=== PATIENT | male | born 1975 | race Caucasian/White ===

== ENCOUNTER 2024-03-31 07:59 | Outpatient (AMB) | payer OTHER, SELFPAY ==
[2024-03-31 08:02] VITALS: BP 116/65; PULSE 72; BMI 33.9
--- NOTE | 2024-03-31 08:02 | MHC.OFFVIS ---
Vital Signs 03/31/24 08:02 Height 5 ft 10 in Weight 236 lb 5.369 oz BMI 33.9 BP 116/65 Blood Pressure Location Lt brachial Position Sitting Pulse 72 Intake Visit Reasons: Colonoscopy Screening Intake Note: Patient referred for colonoscopy screening. Will be first colonoscopy. Patient c/o: denies diarrhea, constipation. Reports on Mounjaro for 1.5yr. 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 Accompanied by: Self / Same As Patient Allergies No Known Allergies Allergy (Verified 03/31/24 08:08) Medication List - Last Reconciled 03/31/24 by Adriana Desir PA-C apixaban (Eliquis) 5 mg PO BID atorvastatin mg PO lisinopril-hydrochlorothiazide 10-12.5 mg 1 tab PO DAILY metformin ER 1,000 mg PO BID metoprolol succinate ER 12.5 mg PO DAILY omeprazole 20 mg PO DAILY sildenafil 100 mg PO DAILY PRN tirzepatide (Mounjaro) mg subcut HPI Comments Details: A 48-year-old male referred for screening colonoscopy- No concerns He has reflux- man years on ppi- never had EGD Appetite good Bowels normal Eliquis for AFIB- f/u with PVC- compliant No cardiac sx No N/V/D/ abdominal pain fever or chills PFSH Surgical History S/P reconstruction of ACL of right knee using bone-patellar tendon-bone autograft Social History (Updated 03/31/24 @ 08:20 by Adriana Desir PA-C) Alcohol intake: current Alcohol intake frequency: holidays/special occasions only Alcohol type: other Patient Tobacco Use Status: Never used Tobacco Current occupational status: employed Review of Systems Const All systems reviewed & are unremarkable except as noted in HPI and below Card Denies chest pain, Denies rapid heart rate and Denies dyspnea Resp Denies dyspnea GI Denies abdominal pain, Denies change in bowel habits and Reports heartburn Physical Exam Vital Signs: Last Vital Signs Pulse 72 03/31/24 08:02 BP 116/65 03/31/24 08:02 BMI result Body Mass Index 33.9 Const General: cooperative, healthy appearing, comfortable and no acute distress Orientation/consciousness: patient oriented x3 Limitations: no limitations Eyes Sclerae: sclerae normal Resp Effort & Inspection: normal respiratory effort and able to speak in complete sentences Auscultation: clear to auscultation bilaterally, no rales, no rhonchi and no wheezes Cardio Rate: regular rate Rhythm: regular rhythm Heart sounds: S1 normal heart sound present and S2 normal heart sound present Skin General skin exam: no rashes or lesions noted Neuro General: patient oriented x3 Extrem General: Yes full ROM Psych Appearance: grossly normal and well kempt Mental Status: mental status grossly normal Speech and movement: Normal speech and movement present and Clear speech present Affect: normal affect Attitude: cooperative Thought process: Normal thought process present Thought content: Normal thought content present Insight: Good insight present (Psych) Judgement: Good judgement present (Psych) Assessment & Plan Assessment & Plan (1) Anticoagulant long-term use: Comment: seeing cardiology - Code(s): Z79.01 - alf (current) use of anticoagulants Category: Medical Plan: BMI: 33.9kg/m PVC-[facility] Eliquis-typicaly d/c x 2 days- he will disc. w/ PVC (2) GERD (gastroesophageal reflux disease): Comment: EGD- [facility] surv- r/o PUD etc Code(s): K21.9 - Gastro-esophageal reflux disease without esophagitis Category: Medical Plan: ont. ppi reflux precautions (3) Encounter for screening colonoscopy: Code(s): Z12.11 - Encounter for screening for malignant neoplasm of colon Category: Medical Plan: index screening Plan EGD/ -r/o pud/ esophagitis/ non ulcer dyspepsia- ....index screening colon- MG prep Hold Mounjaro x 7 days omit metformin day before procedure Hold eliquis x 2 days if auhth by prescriber Orders: Orders EGD/[facility] Combo - GI Use Only Today K21.9 - Gastro-esophageal reflux disease without esophagitis, Z12.11 - Encounter for screening for malignant neoplasm of colon, Z79.01 - predatory animal exterminator (current) use of anticoagulants Medications: New bisacodyl (Dulcolax (bisacodyl)) Day before procedure @ 12 noon Take 4 tablets by mouth followed by large glass of water 20 mg (4 x 5 mg) PO ONCE 1 day PRN 4 tabs 0RF colonoscopy prep Z12.11 - Encounter for screening for malignant neoplasm of colon polyethylene glycol 3350 (Miralax) Take as directed by mouth the day before your procedure. 238 grams PO ONCE 1 day PRN 238 grams 0RF laxative effect Patient Instructions: EGD/ colon MG prep reviewed- lit given Hold Mounjaro x 7 days omit metformin day before procedure Hold eliquis x 2 days if auhth by prescriber Coding Level of Care Code New Pt Level 3 (11333) Diagnoses Anticoagulant long-term use Z79.01 GERD (gastroesophageal reflux disease) K21.9 Encounter for screening colonoscopy Z12.11 Time Spent (min) 25
== END 2024-04-02 07:44 | disposition home or self-care (01) ==
PROVIDERS: Visit Provider Physician Assistant
DX: Z79.01 Long term (current) use of anticoagulants (principal); K21.9 Gastro-esophageal reflux disease without esophagitis; Z12.11 Encounter for screening for malignant neoplasm of colon
CPT/HCPCS: 99203

== ENCOUNTER → 2024-03-31 07:59 | Outpatient (BNVA) | payer OTHER, SELFPAY | PROVIDERS: Visit Provider Physician Assistant ==

== ENCOUNTER 2024-10-25 07:01 | Day surgery (SDC) | payer OTHER, SELFPAY ==
[2024-10-21 12:51] VITALS: BMI 33.9
--- NOTE | 2024-10-22 08:49 | P.CONAN_ITS ---
Documented by User: Marissa Vila NP 10/22/24 08:50 HPI - Anesthesia Eval Consult details Narrative: 49yo M for Upper Endoscopy and Colonoscopy Eliquis for afib Anesthesia Pre-Procedure Meds Is the patient on any of the following meds?: GLP1/DPP4 PMFSH Active Problems Active Problems: All Active Problems Encounter for screening colonoscopy (Acute) Anticoagulant long-term use (Acute) Erectile dysfunction (Acute) GERD (gastroesophageal reflux disease) (Acute) Lumbar degenerative disc disease (Acute) High cholesterol (Acute) Hypertension (Acute) Diabetes (Acute) Morbid obesity (Acute) Past Medical History Medical History (Updated 10/21/24 @ 12:49 by Anaid Macedo RN) PAF (paroxysmal atrial fibrillation) Obesity Elevated cholesterol Diabetes GERD (gastroesophageal reflux disease) Surgical History Surgical History S/P reconstruction of ACL of right knee using bone-patellar tendon-bone autograft Social History Social History (Updated 03/31/24 @ 08:20 by Adriana Desir PA-C) Alcohol intake: current Alcohol intake frequency: holidays/special occasions only Alcohol type: other Patient Tobacco Use Status: Never used Tobacco Second Hand Smoke Exposure: No Use of substances other than those prescribed or required for medical reasons: No Have you been hit, kicked, punched, or otherwise hurt by someone within the past year? If so, by whom?: No Are you DNR?: No Advance Directives: No Advance Directives Information Provided: Yes Advance Directives on File: No Recently lost weight without trying: No Eating poorly because of decreased appetite: No Nutrition Risks: No Nutritional Risk Poor oral hygiene: No Current occupational status: employed Meds Allergies Allergy/AdvReac Type Severity Reaction Status Date / Time No Known Allergies Allergy Verified 03/31/24 08:08 Home Medications ?Medication ?Instructions ?Recorded ?Confirmed ?Last Taken ?Type apixaban 5 mg tablet (Eliquis) 5 mg PO BID 03/31/24 10/21/24 Unknown History atorvastatin 80 mg tablet 80 mg PO DAILY 03/31/24 10/21/24 Unknown History lisinopril 10 1 tab PO DAILY 03/31/24 10/21/24 Unknown History mg-hydrochlorothiazide 12.5 mg tablet metformin 500 mg tablet,extended 1,000 mg PO BID 03/31/24 10/21/24 Unknown History release 24 hr metoprolol succinate 25 mg 12.5 mg PO DAILY 03/31/24 10/21/24 Unknown History tablet,extended release 24 hr omeprazole 20 mg capsule,delayed 20 mg PO DAILY 03/31/24 10/21/24 Unknown History release sildenafil 100 mg tablet 100 mg PO DAILY PRN Erectile 03/31/24 10/21/24 Unknown History Dysfunction tirzepatide 12.5 mg/0.5 mL 12.5 mg subcut QWEEK 03/31/24 10/21/24 Unknown History subcutaneous pen injector (Mounjaro) Exam Height,Weight and Vital Signs: Height 5 ft 10 in Weight 107.048 kg Assessment and Plan Assessment Anesthesia Assessment: Chart Reviewed Documented by User: Stephanie Gramajo MD 10/25/24 08:21 [facility] Past Medical History Medical History (Updated 10/21/24 @ 12:49 by Anaid Macedo RN) PAF (paroxysmal atrial fibrillation) Obesity Elevated cholesterol Diabetes GERD (gastroesophageal reflux disease) Family History Family history of problems with anesthesia: No Surgical History Surgical History S/P reconstruction of ACL of right knee using bone-patellar tendon-bone autograft History of Problems with Anesthesia: No Social History Social History (Updated 03/31/24 @ 08:20 by Adriana Desir PA-C) Alcohol intake: current Alcohol intake frequency: holidays/special occasions only Alcohol type: other Patient Tobacco Use Status: Never used Tobacco Second Hand Smoke Exposure: No Use of substances other than those prescribed or required for medical reasons: No Have you been hit, kicked, punched, or otherwise hurt by someone within the past year? If so, by whom?: No Are you DNR?: No Advance Directives: No Advance Directives Information Provided: Yes Advance Directives on File: No Recently lost weight without trying: No Eating poorly because of decreased appetite: No Nutrition Risks: No Nutritional Risk Poor oral hygiene: No Current occupational status: employed Meds Allergies Allergy/AdvReac Type Severity Reaction Status Date / Time No Known Allergies Allergy Verified 03/31/24 08:08 Home Medications ?Medication ?Instructions ?Recorded ?Confirmed ?Last Taken ?Type apixaban 5 mg tablet (Eliquis) 5 mg PO BID 03/31/24 10/21/24 Unknown History atorvastatin 80 mg tablet 80 mg PO DAILY 03/31/24 10/21/24 Unknown History lisinopril 10 1 tab PO DAILY 03/31/24 10/21/24 Unknown History mg-hydrochlorothiazide 12.5 mg tablet metformin 500 mg tablet,extended 1,000 mg PO BID 03/31/24 10/21/24 Unknown History release 24 hr metoprolol succinate 25 mg 12.5 mg PO DAILY 03/31/24 10/21/24 Unknown History tablet,extended release 24 hr omeprazole 20 mg capsule,delayed 20 mg PO DAILY 03/31/24 10/21/24 Unknown History release sildenafil 100 mg tablet 100 mg PO DAILY PRN Erectile 03/31/24 10/21/24 Unknown History Dysfunction tirzepatide 12.5 mg/0.5 mL 12.5 mg subcut QWEEK 03/31/24 10/21/24 Unknown History subcutaneous pen injector (Cyndee) Exam Airway Mallampati Class: II TM Dist: >3cm Neck ROM: Full Heart: rrr Lungs: cta Assessment and Plan Assessment Anesthesia Assessment: Anesthesia Plan Discussed Final Anesthetic Review Family History of Problems with Anesthesia: No History of Problems with Anesthesia: No NPO: Yes ASA Class: III Final Preanesthetic Review: No Changes in Pt Med Stat, Meds/Allgs Chart Reviewed and Consent Obtained/Reviewed Patient Risk: Intermediate Procedure Risk: Intermediate Anesthetic Plan Anesthetic Plan: MAC: Disposition: Standard PACU
[2024-10-25 07:27] VITALS: BMI 15.4
--- NOTE | 2024-10-25 07:37 | PC.NURSE ---
patient started dark brown liquid return after finishing prep. patient ambulated to bathroom. result is clear/yellow liquid.
--- NOTE | 2024-10-25 07:43 | MHC.SHP ---
Pre-Procedural Eval Section A - 24 Hr Update-Section A only Date of Service: 10/25/24 The patient is an INPATIENT: No The patient has been examined within 24 hours of the surgical procedure. The History & Physical has been completed within 30 days and I have reviewed it.: No Section B - Complete if H&P > 30 days Chief Complaint: Colon cancer screening, GERD Relevant Social History: None Present Medications: see Short Stay Collaborative assessment Medical History: Significant History (GERD, hypertension, diabetes, atrial fibrillation on oral anticoagulation) History of Previous Operations: Relevant previous surgery/procedure and date(s) (S/P reconstruction of ACL of right knee using bone-patellar tendon-bone autograft) Allergies: Allergies Allergy/AdvReac Type Severity Reaction Status Date / Time No Known Allergies Allergy Verified 03/31/24 08:08 Review of Systems Sugical H&P ROS: Negative: Constitution, Cardiovascular, Respiratory and Gastrointestinal Exam Surgical H&P Exam: Normal: Heart, Normal: Lungs, Normal: Extremities and Normal: Abdomen Plan Diagnosis/Plan: Unchanged I have reviewed the history and physical and performed a pertinent physical examination on my patient. No changes have occurred unless specified. Time Spent With Patient Time: Total time managing care of this patient today ____ minutes.
[2024-10-25 07:46] LABS: Glucose, Whole Blood 150 mg/dL (60-115)
[2024-10-25] MEDS: Lactated Ringers 1,000 ML 100 ML IVCONT (07:50)
[2024-10-25 07:53] VITALS: BP 139/82; PULSE 71; RESP 16; TEMP 36.4; O2SAT 97
--- NOTE | 2024-10-25 08:42 | HO.OPN-COLON ---
Colonoscopy Operative Note Operative Note Date of Service: 10/25/24 Narrative: FLEXIBLE TRANSORAL UPPER GASTROINTESTINAL ENDOSCOPY WITH BIOPSIES AND COLONOSCOPY TILL CECUM WITH SNARE POLYPECTOMY AND HEMOCLIP PLACEMENT Pre-op diagnosis: Colon cancer screening, GERD Post-op diagnosis: GERD, Gastritis, Colon Polyps, Diverticulosis, hemorrhoids Specimens and Sources: : A. GASTRIC ANTRUM BX ?B. GASTRIC BODY BX ?C. ASCENDING COLON POLYP ?D. RECTAL POLYP Endoscopist:? Jefe Maciel MD Anesthesia:?MAC UPPER ENDOSCOPY Consent: Indications for the procedure and potential complications of bleeding, perforation, reaction to medications and missed diagnosis were discussed with the patient and informed consent was obtained. Instrument: Olympus GIF H 190 mid size upper endoscope Monitoring: Vital signs and clinical assessment, continuous EKG monitoring, Pulse oximetry, Carbon Dioxide monitoring and blood pressure monitoring were done throughout the procedure. Procedure: The patient was placed in the left lateral decubitis position and pre-procedure medications were administered and a bite block was placed. The endoscope was inserted into the mouth and advanced under direct vision to the third part of duodenum. A careful inspection was made as the upper endoscope was withdrawn including a retroflexed examination of the proximal stomach; Findings and interventions are described below. Findings: Larynx: Normal Esophagus: Mildly tortuous esophagus without stricture or ring. GE junction at 42 cms. No esophagitis or Rahman's. Stomach: Moderate diffuse gastric erythema - biopsies were obtained from the antrum. Prominent gastric folds - biopsied Grade 2 flap valve on retroflexed examination of the cardia. Duodenum: Normal bulb and descending duodenum Intervention: Biopsies as noted above COLONOSCOPY PROCEDURE NOTE Instrument: Olympus CF H 190 L variable stiffness adult colonoscope Monitoring: Vital signs and clinical assessment, intermittent blood pressure monitoring, continuous EKG monitoring, Pulse oximetry and Carbon Dioxide monitoring were done throughout the procedure. Please see anesthesia flowsheet. Colon withdrawl time was 22 minutes. Procedure: The patient was placed in the left lateral decubitis position and pre-procedure medications were administered. After a digital rectal examination of the ano-rectum, the video colonoscope was inserted into the rectum and advanced through the colon to the cecum. The colonoscope was slowly withdrawn in a retrograde panoramic fashion and the colon mucosa was carefully examined including a retroflexed view of the rectum. Findings and interventions are described below. Procedure Difficulty: without difficulty Findings: Terminal Ileum: Not evaluated Cecum: Normal Ascending Colon: A 10-12 mm sessile polyp in the distal ascending colon - removed with a hot snare. Polypectomy site was closed with 1 hemoclip Transverse Colon: Normal Descending Colon: Normal Sigmoid Colon: Moderate diverticulosis Rectum: A 7-8 mm sessile polyp in the distal rectum (just inside the anal verge) - removed with a hot snare. Ano-rectum: Moderate internal hemorrhoids Colon preparation: Good after copious irrigation. [place] Bowel Preparation Scale Right colon; 2 Transverse colon: 2 Left colon; 2 (0 = Unprepared colon segment with mucosa not seen due to solid stool that cannot be cleared. 1 = Portion of mucosa of the colon segment seen, but other areas of the colon segment not well seen due to staining, residual stool and/or opaque liquid. 2 = Minor amount of residual staining, small fragments of stool and/or opaque liquid, but mucosa of colon segment seen well. 3 = Entire mucosa of colon segment seen well with no residual staining, small fragments of stool or opaque liquid) Impression and Post Procedure Diagnosis: Endoscopy Findings: ESOPHAGUS: Mildly tortuous esophagus without stricture or ring. STOMACH: Moderate gastritis with prominent gastric folds DUODENUM: Normal Colonoscopy Findings: Two small to medium sized polyps were removed Moderate diverticulosis seen in the sigmoid colon Moderate hemorrhoids on retroflexed exam. Plan: I will send a letter with biopsy results Repeat Colonoscopy in 3-5 years if polyps are adenomatous and 10 year if polyps are hyperplastic. Dulcolax 10 mg daily starting 5 days before next colon appt. Above findings were reviewed with the patient and relevant handouts were given and the discharge area.
[2024-10-25 09:33] VITALS: BP 113/74; PULSE 75; RESP 16; TEMP 36.8; O2SAT 99
[2024-10-25 09:49] VITALS: BP 124/78; PULSE 70; RESP 17; TEMP 36.7; O2SAT 99
== END 2024-10-25 10:17 | disposition home or self-care (01) ==
PROVIDERS: PCP Nurse Practitioner Primary Care; Visit Provider Internal Medicine Gastroenterology
PROC: (CPT 45385; principal; 2024-10-25 08:30)
DX: Z12.11 Encounter for screening for malignant neoplasm of colon (principal); D12.2 Benign neoplasm of ascending colon; K57.30 Diverticulosis of large intestine without perforation or abscess without bleeding; K64.8 Other hemorrhoids; K29.70 Gastritis, unspecified, without bleeding; K22.4 Dyskinesia of esophagus; A04.8 Other specified bacterial intestinal infections; K21.9 Gastro-esophageal reflux disease without esophagitis; E11.9 Type 2 diabetes mellitus without complications; I10 Essential (primary) hypertension; I48.91 Unspecified atrial fibrillation; E78.00 Pure hypercholesterolemia, unspecified; Z79.84 Long term (current) use of oral hypoglycemic drugs; Z79.899 Other long term (current) drug therapy; Z79.02 Long term (current) use of antithrombotics/antiplatelets; Z79.01 Long term (current) use of anticoagulants
CPT/HCPCS: 45385; 43239; 82947; 88305; 88313; 88341; 88342; J2003; J2704

== ENCOUNTER → 2024-10-25 07:01 | Outpatient (BNV) | payer OTHER, SELFPAY | PROVIDERS: PCP Nurse Practitioner Primary Care; Visit Provider Internal Medicine Gastroenterology | DX: Z12.11 Encounter for screening for malignant neoplasm of colon (principal); D12.2 Benign neoplasm of ascending colon; K62.1 Rectal polyp; K57.30 Diverticulosis of large intestine without perforation or abscess without bleeding; K21.9 Gastro-esophageal reflux disease without esophagitis; K29.70 Gastritis, unspecified, without bleeding | CPT/HCPCS: 43239; 45385 ==

== ENCOUNTER 2024-12-20 08:22 | Outpatient (AMB) | payer OTHER, SELFPAY ==
--- NOTE | 2024-12-20 08:54 | AM.OFFVISNUR ---
Intake Visit Reasons: h pylori Allergies No Known Allergies Allergy (Verified 03/31/24 08:08) Nursing Note Patient presents for collection of H Pylori breath test. Patient has been fasting for 1 hour (nothing to eat, drink, no chewing gum or smoking) has not taken any antacid medication for at least 2 weeks and has no allergies to artificial sweeteners.?? Assessment & Plan Assessment & Plan (1) Helicobacter pylori gastritis: Code(s): K29.70 - Gastritis, unspecified, without bleeding; B96.81 - Helicobacter pylori [H. pylori] as the cause of diseases classified elsewhere Category: Medical Plan Patient presents for collection of H Pylori breath test. Patient has been fasting for 1 hour (nothing to eat, drink, no chewing gum or smoking) has not taken any antacid medication for at least 2 weeks and has no allergies to artificial sweeteners.???This test checks for an overgrowth of bacteria in your stomach. We all have bacteria but some may have more than others. It is treatable. if the test comes back negative there is nothing else to do. If the test result is positive we will treat you with 2 antibiotics and a medication to decrease the acid in your stomach (PPI) for 2 weeks. Two weeks after you have completed the treatment we will retest you to make sure the overgrowth has resolved. Orders: Orders H Pylori Breath Test Today Patient Instructions: Process for specimen collection and reason for testing was explained to the patient. Specimen collection. Patient instructed to take a deep breath and then exhale into the blue bag, filling it up as much as possible. Patient instructed to drink a mixture of water and the artificial sweetener with a straw. A 15 minute wait period was observed. Patient instructed to take a deep breath and then exhale into the pink bag, filling it up as much as possible.?? Coding Level of Care Code Established Pt Est Pt Level 1 (03461) Patient Type Established Medical Decision Making Straight Forward Diagnoses Helicobacter pylori gastritis K29.70; B96.81
== END 2024-12-20 08:55 | disposition home or self-care (01) ==
PROVIDERS: PCP Nurse Practitioner Primary Care; Visit Provider Internal Medicine Gastroenterology
DX: K29.70 Gastritis, unspecified, without bleeding (principal); B96.81 Helicobacter pylori [H. pylori] as the cause of diseases classified elsewhere

== ENCOUNTER 2024-12-20 08:22 | Outpatient (REF) | payer OTHER, SELFPAY ==
[2024-12-21 10:40] LABS: H Pylori Breath Test Negative (Negative)
== END 2024-12-20 08:23 | disposition home or self-care (01) ==
LOC: HO.LNP 08:22
PROVIDERS: PCP Nurse Practitioner Primary Care; Visit Provider Internal Medicine Gastroenterology
DX: K29.70 Gastritis, unspecified, without bleeding (principal); B96.81 Helicobacter pylori [H. pylori] as the cause of diseases classified elsewhere
CPT/HCPCS: 83013; 99211